=== PATIENT | male | born 1970 | race Caucasian/White ===

== ENCOUNTER 2017-03-16 19:13 | Emergency (ER) | payer BC, OTHER ==
[2017-03-16] MEDS ORDERED: traMADol 50 MG STARTER PACK 3 TAB BTL PO STA (19:25)
[2017-03-16] MEDS ORDERED: PENICILLIN VK 500MG STARTER 4 TAB BTL PO STA (19:25)
[2017-03-16 19:33] VITALS: BP 152/85; PULSE 107; RESP 18; TEMP 97.7
--- NOTE | 2017-03-16 19:34 | ED ---
General Adult HPI - General Stated complaint: DENTAL PAIN Time Seen by Provider: 03/16/17 19:18 Source: patient, RN notes reviewed Mode of arrival: ambulatory Limitations: no limitations - History of Present Illness Initial comments: 47-year-old male presents emergency department with a chief complaint of right- sided dental pain. Patient states it started over the last 2 days and slowly gotten worse. He denies any fever chills. He states he's been using his pain medication to help with the pain but the swelling has not gone down so he thought that he should be seen. There is been no nausea or vomiting. He states that he's noticed swelling under the eye into the sinus and he has pain to the right upper tooth. He was concerned due to his continued symptoms patient denies any other concerns at this time. No pain radiating to her neck. No difficulty opening or closing the mouth.Patient denies any recent fever, chills, shortness of breath, chest pain, back pain, abdominal pain, nausea vomiting, numbness or tingling, dysuria or hematuria, constipation or diarrhea, headaches or visual changes, or any other current symptoms. - Related Data Home Medications Medication Instructions Recorded Confirmed ARIPiprazole [Abilify] 30 mg PO DAILY 07/05/14 11/20/14 Atorvastatin [Lipitor] mg PO DAILY 07/05/14 11/20/14 Cyclobenzaprine [Flexeril] 5 mg PO HS 07/05/14 11/20/14 Venlafaxine HCl [Effexor] 225 mg PO DAILY 07/05/14 11/20/14 clonazePAM [KlonoPIN] 0.5 mg PO TID 07/05/14 11/20/14 HYDROcodone/APAP 10-325MG [[place] 1 each PO Q4HR PRN 11/20/14 11/20/14 10] Previous Rx's Medication Instructions Recorded Cyclobenzaprine [Flexeril] 10 mg PO TID #20 tablet 07/06/14 Acetaminophen with Codeine 1 each PO Q4H #20 tab 11/20/14 [Tylenol w/codeine #3] Albuterol Sulfate [Proair Hfa] 1 - 2 puff INHALATION Q6HR PRN #1 11/20/14 inhaler Penicillin V Potassium [Pen Vee K] 500 mg PO QID 7 Days tablet 03/16/17 traMADol HCl [Ultram] 50 mg PO Q6H PRN #20 tab 03/16/17 Allergies Allergy/AdvReac Type Severity Reaction Status Date / Time No Known Allergies Allergy Verified 03/16/17 19:29 Review of Systems ROS Statement: Those systems with pertinent positive or pertinent negative responses have been documented in the HPI. ROS Other: All systems not noted in ROS Statement are negative. Past Medical History Past Medical History: Diabetes Mellitus, Hyperlipidemia Additional Past Medical History / Comment(s): back pain, mood disorder History of Any Multi-Drug Resistant Organisms: None Reported Past Surgical History: Appendectomy, Back Surgery, Hernia Repair Past Psychological History: Depression Smoking Status: Current every day smoker Past Alcohol Use History: Occasional Past Drug Use History: None Reported General Exam Limitations: no limitations General appearance: alert, in no apparent distress Eye exam: Present: normal appearance, PERRL, EOMI. Absent: scleral icterus, conjunctival injection, periorbital swelling ENT exam: Present: normal exam, mucous membranes moist, other (Patient has poor dentition with a cavity noted to tooth #6. No obvious abscess or gingival margin noted.) Neck exam: Present: normal inspection. Absent: tenderness, meningismus, lymphadenopathy Respiratory exam: Present: normal lung sounds bilaterally. Absent: respiratory distress, wheezes, rales, rhonchi, stridor Cardiovascular Exam: Present: regular rate, normal rhythm, normal heart sounds. Absent: systolic murmur, diastolic murmur, rubs, gallop, clicks Neurological exam: Present: alert, oriented X3 Psychiatric exam: Present: normal affect, normal mood Skin exam: Present: warm, dry, intact, normal color. Absent: rash Course Vital Signs 03/16/17 19:29 Temperature 97.7 F Pulse Rate 107 H Respiratory 18 Rate Blood Pressure 152/85 O2 Sat by Pulse 96 Oximetry Medical Decision Making - Medical Decision Making 47-year-old male presents emergency department with dental pain. At this time we'll start patient antibiotics we will give him a small prescription for tramadol as well. We discussed follow-up with his doctor we discussed return parameters were discussed all the patient's questions. He stated the Jeramie management this plan. All questions have been answered. They will be discharged. Disposition Clinical Impression: Dental caries Disposition: HOME SELF-CARE Condition: Stable Instructions: Toothache (ED) Additional Instructions: Please use medication as discussed. Please follow up with family doctor if symptoms have not improved over the next two days. Please return to the emergency room if your symptoms increase or worsen or for any other concerns. [facility] [id number] [place] [address] [phone] (existing clients only) For new clients: [phone] 1st consult: $50 (includes Xrays) Usually 30% less then private dentist for visits after. [employer] Have to pay $50 for Xrays anmd rest is covered. [phone] Prescriptions: Penicillin V Potassium [Pen Vee K] 500 mg PO QID 7 Days tablet traMADol HCl [Ultram] 50 mg PO Q6H PRN #20 tab PRN Reason: Pain Referrals: Ghassan Salinas MD [Primary Care Provider] - 1-2 days Time of Disposition: 19:33
== END 2017-03-16 19:44 | disposition home or self-care (01) ==
LOC: EC 19:13
DX: K02.9 Dental caries, unspecified (principal); E78.5 Hyperlipidemia, unspecified; F32.9 Major depressive disorder, single episode, unspecified; F17.200 Nicotine dependence, unspecified, uncomplicated; Z79.899 Other long term (current) drug therapy
CPT/HCPCS: 99282

== ENCOUNTER 2017-08-28 04:56 | Inpatient (IN) | payer BC ==
[2017-08-28] MEDS ORDERED: SODIUM CHLORIDE 0.9% 1,000 ML IV STA (05:09)
[2017-08-28] MEDS ORDERED: DIAZEPAM 5 MG/ML 2 ML INJ IVP STA (05:09)
[2017-08-28] MEDS ORDERED: MORPHINE SULFATE 4 MG/ML SYRINGE IV STA (05:09)
[2017-08-28] MEDS ORDERED: MORPHINE SULFATE 2 MG/ML SYRINGE IV STA (05:09)
[2017-08-28] MEDS ORDERED: MORPHINE SULFATE 2 MG/ML SYRINGE IVP PRN (05:22)
[2017-08-28 05:35] LABS: Basophils # (A) 0.1 k/uL (0-0.2); Basophils % (A) 1 %; Eosinophils # (A) 0.3 k/uL (0-0.7); Eosinophils % (A) 3 %; HCT 46.1 % (39.0-53.0); HGB 15.4 gm/dL (13.0-17.5); Lymphocytes # (A) 2.1 k/uL (1.0-4.8); Lymphocytes % (A) 17 %; MCH 29.5 pg (25.0-35.0); MCHC 33.4 g/dL (31.0-37.0); MCV 88.4 fL (80.0-100.0); Mean Platelet Volume 7.2; Monocytes # (A) 0.8 k/uL (0-1.0); Monocytes % (A) 6 %; Neutrophils # (A) 8.6 k/uL (1.3-7.7); Neutrophils % (A) 72 %; Platelet Count 244 k/uL (150-450); RBC 5.21 m/uL (4.30-5.90); RDW 12.9 % (11.5-15.5)
--- NOTE | 2017-08-28 05:45 | ED ---
General Adult HPI - General Chief complaint: Chest Pain Stated complaint: Chest pain Time Seen by Provider: 08/28/17 05:07 Source: EMS, RN notes reviewed, old records reviewed Mode of arrival: EMS - History of Present Illness Initial comments: This is a 47-year-old male to the ER for evaluation. Please presenting for evaluation regards to cough congestion. Patient is no recent travel history no known sick contacts. Patient states he has history of high cholesterol diabetes. Patient's taking all medication as prescribed. Patient states he has some chest pain for a month. He is also complaining of some abdominal pain with nausea. Patient does have mild history of drinking alcohol. Denies any recent alcohol use. - Related Data Home Medications Medication Instructions Recorded Confirmed ARIPiprazole [Abilify] 30 mg PO DAILY 07/05/14 11/20/14 Atorvastatin [Lipitor] mg PO DAILY 07/05/14 11/20/14 Cyclobenzaprine [Flexeril] 5 mg PO HS 07/05/14 11/20/14 Venlafaxine HCl [Effexor] 225 mg PO DAILY 07/05/14 11/20/14 clonazePAM [KlonoPIN] 0.5 mg PO TID 07/05/14 11/20/14 HYDROcodone/APAP 10-325MG [[place] 1 each PO Q4HR PRN 11/20/14 11/20/14 10] Previous Rx's Medication Instructions Recorded Cyclobenzaprine [Flexeril] 10 mg PO TID #20 tablet 07/06/14 Acetaminophen with Codeine 1 each PO Q4H #20 tab 11/20/14 [Tylenol w/codeine #3] Albuterol Sulfate [Proair Hfa] 1 - 2 puff INHALATION Q6HR PRN #1 11/20/14 inhaler Penicillin V Potassium [Pen Vee K] 500 mg PO QID 7 Days tablet 03/16/17 traMADol HCl [Ultram] 50 mg PO Q6H PRN #20 tab 03/16/17 Allergies Allergy/AdvReac Type Severity Reaction Status Date / Time No Known Allergies Allergy Verified 08/28/17 05:06 Review of Systems ROS Statement: Those systems with pertinent positive or pertinent negative responses have been documented in the HPI. ROS Other: All systems not noted in ROS Statement are negative. Past Medical History Past Medical History: Hyperlipidemia Additional Past Medical History / Comment(s): back pain History of Any Multi-Drug Resistant Organisms: None Reported Past Surgical History: Appendectomy, Back Surgery, Hernia Repair Past Psychological History: No Psychological Hx Reported Smoking Status: Current every day smoker Past Alcohol Use History: Occasional Past Drug Use History: None Reported General Exam General appearance: alert, in no apparent distress Head exam: Present: atraumatic, normocephalic, normal inspection Eye exam: Present: normal appearance, PERRL, EOMI. Absent: scleral icterus, conjunctival injection, periorbital swelling ENT exam: Present: normal exam, mucous membranes dry Neck exam: Present: normal inspection. Absent: tenderness, meningismus, lymphadenopathy Respiratory exam: Present: normal lung sounds bilaterally. Absent: respiratory distress, wheezes, rales, rhonchi, stridor Cardiovascular Exam: Present: normal rhythm, tachycardia, normal heart sounds. Absent: systolic murmur, diastolic murmur, rubs, gallop, clicks GI/Abdominal exam: Present: soft, normal bowel sounds. Absent: distended, tenderness, guarding, rebound, rigid Extremities exam: Present: normal inspection, full ROM, normal capillary refill. Absent: tenderness, pedal edema, joint swelling, calf tenderness Back exam: Present: normal inspection Neurological exam: Present: alert, oriented X3, CN II-XII intact Psychiatric exam: Present: normal affect, normal mood Skin exam: Present: warm, dry, intact, normal color. Absent: rash Course Vital Signs 08/28/17 05:01 Temperature 98.8 F Pulse Rate 130 H Respiratory 22 Rate Blood Pressure 156/96 O2 Sat by Pulse 99 Oximetry - Reevaluation(s) Reevaluation #1: 08/28/17 06:18 Patient symptoms improving with pain control and anxiolysis Reevaluation #2: 08/28/17 06:18 Medical record is reviewed EKG Findings - EKG Comments: EKG Findings:: EKG shows sinus rhythm rate of 77, ID 108, QRS 76, QTc 434 Medical Decision Making - Medical Decision Making 47 male the ER for evaluation of chest pain of bowel pain, positive pancreatitis , will not for cardiac observation trending of troponin and nothing by mouth, pain control IV hydration - Lab Data Result diagrams: 08/28/17 05:25 08/28/17 05:25 Lab Results 08/28/17 08/28/17 08/28/17 Range/Units 05:25 05:25 05:25 WBC 12.0 H (3.8-10.6) k/uL RBC 5.21 (4.30-5.90) m/uL Hgb 15.4 (13.0-17.5) gm/dL Hct 46.1 (39.0-53.0) % MCV 88.4 (80.0-100.0) fL MCH 29.5 (25.0-35.0) pg MCHC 33.4 (31.0-37.0) g/dL RDW 12.9 (11.5-15.5) % Plt Count 244 (150-450) k/uL Neutrophils % 72 % Lymphocytes % 17 % Monocytes % 6 % Eosinophils % 3 % Basophils % 1 % Neutrophils # 8.6 H (1.3-7.7) k/uL Lymphocytes # 2.1 (1.0-4.8) k/uL Monocytes # 0.8 (0-1.0) k/uL Eosinophils # 0.3 (0-0.7) k/uL Basophils # 0.1 (0-0.2) k/uL PT (9.0-12.0) sec INR (<1.2) APTT (22.0-30.0) sec D-Dimer (<0.60) mg/L FEU Sodium 139 (137-145) mmol/L Potassium 4.0 (3.5-5.1) mmol/L Chloride 101 (98-107) mmol/L Carbon Dioxide 25 (22-30) mmol/L Anion Gap 13 mmol/L BUN 8 L (9-20) mg/dL Creatinine 0.80 (0.66-1.25) mg/dL Est GFR (CKD-EPI)AfAm >90 (>60 ml/min/1.73 sqM) Est GFR (CKD-EPI)NonAf >90 (>60 ml/min/1.73 sqM) Glucose 166 H (74-99) mg/dL Calcium 9.9 (8.4-10.2) mg/dL Magnesium 1.7 (1.6-2.3) mg/dL Total Bilirubin 0.3 (0.2-1.3) mg/dL AST 21 (17-59) U/L ALT 33 (21-72) U/L Alkaline Phosphatase 91 (38-126) U/L Total Creatine Kinase 133 (55-170) U/L CK-MB (CK-2) 1.0 (0.0-2.4) ng/mL CK-MB (CK-2) Rel Index 0.8 Troponin I <0.012 (0.000-0.034) ng/mL Total Protein 7.1 (6.3-8.2) g/dL Albumin 4.6 (3.5-5.0) g/dL Lipase 1439 H (23-300) U/L 08/28/ Range/Units 05:25 WBC (3.8-10.6) k/uL RBC (4.30-5.90) m/uL Hgb (13.0-17.5) gm/dL Hct (39.0-53.0) % MCV (80.0-100.0) fL MCH (25.0-35.0) pg MCHC (31.0-37.0) g/dL RDW (11.5-15.5) % Plt Count (150-450) k/uL Neutrophils % % Lymphocytes % % Monocytes % % Eosinophils % % Basophils % % Neutrophils # (1.3-7.7) k/uL Lymphocytes # (1.0-4.8) k/uL Monocytes # (0-1.0) k/uL Eosinophils # (0-0.7) k/uL Basophils # (0-0.2) k/uL PT 9.6 (9.0-12.0) sec INR 1.0 (<1.2) APTT 27.9 (22.0-30.0) sec D-Dimer 0.49 (<0.60) mg/L FEU Sodium (137-145) mmol/L Potassium (3.5-5.1) mmol/L Chloride (98-107) mmol/L Carbon Dioxide (22-30) mmol/L Anion Gap mmol/L BUN (9-20) mg/dL Creatinine (0.66-1.25) mg/dL Est GFR (CKD-EPI)AfAm (>60 ml/min/1.73 sqM) Est GFR (CKD-EPI)NonAf (>60 ml/min/1.73 sqM) Glucose (74-99) mg/dL Calcium (8.4-10.2) mg/dL Magnesium (1.6-2.3) mg/dL Total Bilirubin (0.2-1.3) mg/dL AST (17-59) U/L ALT (21-72) U/L Alkaline Phosphatase (38-126) U/L Total Creatine Kinase (55-170) U/L CK-MB (CK-2) (0.0-2.4) ng/mL CK-MB (CK-2) Rel Index Troponin I (0.000-0.034) ng/mL Total Protein (6.3-8.2) g/dL Albumin (3.5-5.0) g/dL Lipase (23-300) U/L - Radiology Data Radiology results: report reviewed (Chest x-rays negative), image reviewed Disposition Clinical Impression: Chest pain, Atypical chest pain, Acute pancreatitis Disposition: ADMITTED IP TO THIS [facility] Condition: Good Instructions: Chest Pain (ED) Is patient prescribed a controlled substance at d/c from ED?: No Referrals: Ghassan Salinas MD [Primary Care Provider] - 1-2 days
[2017-08-28 05:47] LABS: ALT 33 U/L (21-72); AST 21 U/L (17-59); Albumin 4.6 g/dL (3.5-5.0); Alkaline Phosphatase 91 U/L (38-126); Anion Gap 13 mmol/L; Blood Urea Nitrogen 8 mg/dL (9-20); Calcium 9.9 mg/dL (8.4-10.2); Carbon Dioxide 25 mmol/L (22-30); Chloride 101 mmol/L (98-107); D-Dimer 0.49 mg/L FEU (<0.60); Glucose 166 mg/dL (74-99); Lipase 1439 U/L (23-300); Magnesium 1.7 mg/dL (1.6-2.3); Partial Thromboplastin Time 27.9 sec (22.0-30.0); Prothrombin Time 9.6 sec (9.0-12.0); Sodium 139 mmol/L (137-145); Total Bilirubin 0.3 mg/dL (0.2-1.3); Total Protein 7.1 g/dL (6.3-8.2)
[2017-08-28 05:51] LABS: Creatine Kinase 133 U/L (55-170)
[2017-08-28 06:04] LABS: Troponin I <0.012 ng/mL (0.000-0.034)
[2017-08-28] MEDS ORDERED: THIAMINE 100 MG/ML 2 ML VIAL IM STA (06:15)
[2017-08-28] MEDS ORDERED: MORPHINE SULFATE 2 MG/ML SYRINGE IV PRN (06:15)
[2017-08-28] MEDS ORDERED: NITROGLYCERIN SL TABS 0.4 MG TAB SUBLINGUAL PRN (06:15)
[2017-08-28] MEDS ORDERED: SODIUM CHLORIDE 0.9% 1,000 ML IV SCH (06:15)
[2017-08-28] MEDS ORDERED: LORazepam 2 MG/ML INJ IV PRN ×3 (06:15)
[2017-08-28] MEDS ORDERED: ASPIRIN 81 MG PO STA (06:15)
--- NOTE | 2017-08-28 06:15 | XR ---
EXAMINATION TYPE: XR chest 2V DATE OF EXAM: 08/28/2017 COMPARISON: 11/20/2014 HISTORY: Chest pain TECHNIQUE: Frontal and lateral views of the chest are obtained. FINDINGS: Heart and mediastinum are normal. There is slight blunting of right costophrenic angle. Adelina ngs are clear of infiltrate. There are chest leads. Bony thorax is intact. IMPRESSION: There is new mild pleural reaction or fluid at the right lung base compared to old exam. Normal heart.
[2017-08-28] MEDS ORDERED: PANTOPRAZOLE 40 MG/10 ML VIAL IVP STA (06:17)
[2017-08-28] MEDS ORDERED: ONDANSETRON 4 MG/2 ML VIAL IVP STA (06:17)
[2017-08-28] MEDS ORDERED: ONDANSETRON 4 MG/2 ML VIAL IVP PRN (06:17)
[2017-08-28 07:16] VITALS: TEMP 97.8
[2017-08-28] MEDS ORDERED: PANTOPRAZOLE 40 MG/10 ML VIAL IVP SCH (09:00)
[2017-08-28] MEDS ORDERED: metFORMIN 500 MG TAB PO SCH (11:00)
[2017-08-28] MEDS ORDERED: VENLAFAXINE HCL ER 75 MG CAP PO SCH (11:00)
[2017-08-28 12:12] LABS: Cholesterol 104 mg/dL (<200); HDL Cholesterol 30 mg/dL (40-60); LDL Cholesterol,Calculated 37 mg/dL (0-99); Triglycerides 185 mg/dL (<150)
[2017-08-28 12:27] LABS: Creatine Kinase 150 U/L (55-170)
[2017-08-28 12:38] LABS: Creatine Kinase MB 0.7 ng/mL (0.0-2.4); Troponin I <0.012 ng/mL (0.000-0.034)
--- NOTE | 2017-08-28 12:47 | US ---
EXAMINATION TYPE: US abdomen limited DATE OF EXAM: 08/28/2017 COMPARISON: None CLINICAL HISTORY: abdominal pain, elevated lipase. RUQ pain, NPO EXAM MEASUREMENTS: Liver Length: 15.7 cm Gallbladder Wall: 0.2 cm CBD: 0.3 cm CHD: 0.3 cm Right Kidney: 11.4 x 5.0 cm Pancreas: Appears heterogenous and slightly echogenic. Liver: wnl Gallbladder: wnl Evidence for sonographic Watt's sign: neg CBD: wnl CHD: wnl Right Kidney: Medial anechoic lesion seen at hilum - 2.2 x 2.2 cm. Medial lower pole cystic lesion = 0.4 x 0.5 x 0.3 cm IMPRESSION: 1. Right renal cyst. 2. Possible peripelvic cyst right kidney
--- NOTE | 2017-08-28 13:17 | ECHOF ---
Referral Reason: MEASUREMENTS -------- HEIGHT: 165.1 cm WEIGHT: 72.1 kg BP: 131/88 IVSd: 1.0 cm (0.6 - 1.1) LVIDd: 4.2 cm (3.9 - 5.3) LVPWd: 1.1 cm (0.6 - 1.1) IVSs: 1.2 cm LVIDs: 3.4 cm LVPWs: 1.2 cm LA Diam: 3.4 cm (2.7 - 3.8) LAESV Index (A-L): 19.14 ml/m Ao Diam: 3.3 cm (2.0 - 3.7) AV Cusp: 1.5 cm (1.5 - 2.6) LA Diam: 3.2 cm (2.7 - 3.8) MV EXCURSION: 14.881 mm (> 18.000) MV EF SLOPE: 96 mm/s (70 - 150) EPSS: 2.2 cm MV E Gera: 0.85 m/s MV DecT: 153 ms MV A Gera: 0.85 m/s MV E/A Ratio: 1.00 RAP: 5.00 mmHg RVSP: 22.70 mmHg FINDINGS -------- Sinus rhythm. This was a technically good study. LV size, wall thickness and systolic function are normal, with an EF greater than 55%. The left robert tricular size is normal. The right ventricle is normal in size. The left atrial size is normal. The right atrial size is normal. The aortic valve is trileaflet, and appears structurally normal. No aortic stenosis or regurgitation. Mild mitral regurgitation is present. Mild tricuspid regurgitation present. There is no evidence of pulmonary hypertension. The right v entricular systolic pressure, as measured by Doppler, is 22.70mmHg. There is no pulmonic regurgitation present. The aortic root size is normal. There is no pericardial effusion. CONCLUSIONS -------- 1. LV size, wall thickness and systolic function are normal, with an EF greater than 55%. 2. The left ventricular size is normal. 3. The right ventricle is normal in size. 4. The left atrial size is normal. 5. The right atrial size is normal. 6. The aortic valve is trileaflet, and appears structurally normal. No aortic stenosis or regurgitati on. 7. Mild mitral regurgitation is present. 8. Mild tricuspid regurgitation present. 9. There is no evidence of pulmonary hypertension. 10. The right ventricular systolic pressure, as measured by Doppler, is 22.70mmHg. 11. There is no pulmonic regurgitation present. 12. The aortic root size is normal. 13. There is no pericardial effusion. CARTON CATCHER: Audrey Holland RDCS
--- NOTE | 2017-08-28 13:52 | P.HPIM ---
History of Present Illness H&P Date: 08/28/17 Chief Complaint: chest pain 47-year-old male who presented to the emergency room with a chief complaint of chest pain. The patient states he has been having chest pain intermittently for one month. He describes it as a "charley horse" in the middle of his chest. The patient states the pain improves when he is stretching. The pain is worse with deep inspiration. He reports pain upon palpation of chest wall. He denies shortness of breath. He reports smoking 3 packs of cigarettes a day and drinking 15 cups of coffee. He also reports he was started on Lipitor about a year ago by Dr. Salinas because his triglycerides were around 5,000. He reports his repeat triglycerides completed at his primary care physicians office was around 1000. The patient also complains of occasional right-sided abdominal pain for the last 2 weeks. Patient states he still has his gallbladder. He reports history of appendectomy. Patient states he drinks alcohol once a month. Patient reports daily marijuana use. The patients blood pressure has been elevated, however the patient has been agitated all day regarding his wait time in the emergency room. Will continue to trend BP. The patient has a history of chronic back pain and takes [place] daily. He also has a history of hyperlipidemia. The patient states he has also a type II diabetic. He takes metformin daily, but states he does not check his blood sugars at home. Chest x-ray: New mild pleural reaction or fluid at the right lung base compared to old exam. Laboratory data: WBC 12.0. Hemoglobin 15.4. Platelet count 244. Sodium 139. Potassium 4.0. BUN 8. Creatinine 0.80. Glucose 166. LFTs within normal limits. Amylase 110. Lipase 1439. Troponins negative 2 D-Dimer: 0.49 The patient was admitted to the hospital under the care of Dr. Acosta. Review of Systems Those systems with pertinent positive or pertinent negative responses have been documented in the HPI Past Medical History Past Medical History: Hyperlipidemia Additional Past Medical History / Comment(s): back pain History of Any Multi-Drug Resistant Organisms: None Reported Past Surgical History: Appendectomy, Back Surgery, Hernia Repair Past Psychological History: No Psychological Hx Reported Smoking Status: Current every day smoker Past Alcohol Use History: Occasional Past Drug Use History: None Reported - Past Family History Father Family Medical History: Cancer Additional Family Medical History / Comment(s): Bladder cancer Mother Additional Family Medical History / Comment(s): Mother has anxiety and depression. Medications and Allergies Home Medications Medication Instructions Recorded Confirmed Type HYDROcodone/APAP 10-325MG [[place] 1 tab PO Q4HR PRN 11/20/14 08/28/17 History 10] Amino Acid Recovery Powder 1 scoop PO DAILY 08/28/17 08/28/17 History Atorvastatin [Lipitor] 80 mg PO HS 08/28/17 08/28/17 History QUEtiapine FUMARATE [SEROquel] 200 mg PO HS 08/28/17 08/28/17 History Venlafaxine HCl [Effexor XR] 225 mg PO DAILY 08/28/17 08/28/17 History metFORMIN HCL 1,000 mg PO BID 08/28/17 08/28/17 History Allergies Allergy/AdvReac Type Severity Reaction Status Date / Time nickel Allergy Rash/Hives Verified 08/28/17 07:59 Physical Exam Vitals: Vital Signs Temp Pulse Resp BP Pulse Ox 08/28/17 12:00 76 20 155/89 99 08/28/17 10:43 75 20 179/100 99 08/28/17 07:14 97.8 F 72 18 151/93 99 08/28/17 06:42 79 18 131/88 98 08/28/17 05:01 98.8 F 130 H 22 156/96 99 Intake and Output 08/27/17 08/28/17 08/28/17 22:59 06:59 14:59 Output Total 500 Balance -500 Output: Urine 500 Other: Weight 71.214 kg GENERAL: This is a 47-year-old male in no apparent distress at the time of examination. Pleasant and cooperative. HEENT: Head is atraumatic, normocephalic. Pupils are equal, round, and reactive to light. Sclerae anicteric. Conjunctivae are clear. Mucus membranes of the mouth are moist. Neck is supple. RESPIRATORY: Clear to ausculation. No wheezes, rales, or rhonchi. No use of accessory muscles. Patient maintaining oxygen saturation greater than 92%. Chest wall tenderness is noted on palpation or with deep breathing. CARDIOVASCULAR: Regular rate and rhythm. S1 and S2 noted. No systolic or diastolic murmur auscultated. No JVD noted. No S3 or S4 noted. GASTROINTESTINAL: No distention noted. Abdomen soft and round. Normal active bowel sounds auscultated x 4 quadrants. Pain and tenderness noted upon palpation of epigastric region. INTEGUMENTARY: No cyanosis. No jaundice. No rashes noted. No cellulitis noted. EXTREMITIES: 2+ peripheral pulses. No evidence of peripheral edema. No calf tenderness noted. NEUROLOGIC: Cranial nerves II-XII intact. PSYCHIATRIC: Awake, alert, and oriented X 3. Appropriate affect. Intact judgement and insight. Results CBC & Chem 7: 08/28/17 05:25 08/28/17 05:25 Labs: Abnormal Lab Results - Last 24 Hours (Table) 08/28/17 08/28/17 08/28/17 Range/Units 05:25 05:25 11:52 WBC 12.0 H (3.8-10.6) k/uL Neutrophils # 8.6 H (1.3-7.7) k/uL BUN 8 L (9-20) mg/dL Glucose 166 H (74-99) mg/dL Triglycerides 185 H (<150) mg/dL HDL Cholesterol 30 L (40-60) mg/dL Lipase 1439 H (23-300) U/L Assessment and Plan Plan: ASSESSMENT: Chest pain, troponin negative x 2, Atypical for acute coronary syndrome Abdominal pain with elevated lipase, suspect pancreatitis Diabetes mellitus, type II Hyperlipidemia Chronic back pain Daily marijuana use Nicotine dependence, patient is a current cigarette smoker and reports smoking 3 packs per day PLAN: Chest pain appears atypical for acute coronary syndrome but due to patients heavy tobacco use, hyperlipidemia, and diabetes mellitus will consult cardiology for further evaluation Await results of echo Consult GI to evaluate abdominal pain and elevated lipase Obtain US of abdomen to assess gallbladder and pancreas NPO except ice chips Home meds as appropriate Monitor labs GI prophylaxis: Protonix 40 mg IV Daily DVT prophylaxis: Heparin 5000 units subcu every 8 hours Monitor vital signs and address as appropriate Discharge planning: Patient to return home when stable Further recommendations pending patient's course Nurse practitioner note has been reviewed by physician. Signing provider agrees with the documented findings, assessment, and plan of care.
[2017-08-28] MEDS ORDERED: HYDROcodone/APAP 10-325MG 1 EACH TAB PO PRN (15:08)
[2017-08-28 15:38] VITALS: BP 146/93; PULSE 92; RESP 16
[2017-08-28] MEDS ORDERED: HEPARIN SODIUM,PORCINE 5,000 UNIT/ML 1 ML VIAL SQ SCH (16:00)
[2017-08-28] MEDS ORDERED: THIAMINE 100 MG TAB PO SCH (17:00)
[2017-08-28] MEDS ORDERED: ATORVASTATIN 80 MG TAB PO SCH (21:00)
[2017-08-28] MEDS ORDERED: QUEtiapine 200 MG TAB PO SCH (21:00)
[2017-08-29] MEDS ORDERED: ASPIRIN 325 MG TAB PO SCH (09:00)
== END 2017-08-28 15:48 | disposition left against medical advice (07) | DRG 313 ==
LOC: EC 04:56 → 6SEL 06:17
PROVIDERS: ADMIT Family Medicine; ATTEND Family Medicine
DX: R07.89 Other chest pain (principal); K85.90 Acute pancreatitis without necrosis or infection, unspecified; E11.9 Type 2 diabetes mellitus without complications; E78.5 Hyperlipidemia, unspecified; F17.210 Nicotine dependence, cigarettes, uncomplicated; G89.29 Other chronic pain; M54.9 Dorsalgia, unspecified; Z79.84 Long term (current) use of oral hypoglycemic drugs; Z79.899 Other long term (current) drug therapy; Z90.49 Acquired absence of other specified parts of digestive tract; Z91.048 Other nonmedicinal substance allergy status; Z79.891 Long term (current) use of opiate analgesic; Z80.52 Family history of malignant neoplasm of bladder; Z81.8 Family history of other mental and behavioral disorders
CPT/HCPCS: 36415; 71046; 76705; 80053; 80061; 82150; 82550; 82553; 83690; 83735; 84484; 85025; 85379; 85610; 85730; 93005; 93306; 96361; 96372; 96374; 96375; 96376; 99285

== ENCOUNTER 2018-01-25 13:17 | Emergency (ER) | payer SELFPAY ==
[2018-01-25] MEDS ORDERED: SODIUM CHLORIDE 0.9% 1,000 ML IV STA (13:43)
[2018-01-25] MEDS ORDERED: LORazepam 2 MG/ML INJ IV STA (13:43)
--- NOTE | 2018-01-25 13:44 | ED ---
Altered Mental Status HPI - General Chief Complaint: Altered Mental Status Stated Complaint: altered Time Seen by Provider: 01/25/18 13:42 Source: patient, RN notes reviewed, old records reviewed Mode of arrival: wheelchair Limitations: no limitations - History of Present Illness Initial Comments: This is a 47-year-old male the ER for evaluation of altered mental status. Patient is continues to say something is in the right something is wrong is a feel like he doesn't feel normal, he thinks that there is he's been drawn breathing something was wrong with him he feels like he can't stop talking he feels like his voice is wrong MD Complaint: altered mental status, weakness -: minutes(s) Severity: moderate Consistency of Symptoms: waxing and waning, constant Associated Symptoms: denies other symptoms - Related Data Home Medications Medication Instructions Recorded Confirmed HYDROcodone/APAP 10-325MG [[place] 1 tab PO Q8H PRN 11/20/14 01/25/18 10] Venlafaxine HCl [Effexor XR] 225 mg PO DAILY 08/28/17 01/25/18 metFORMIN HCL 1,000 mg PO BID 08/28/17 01/25/18 OXcarbazepine [Trileptal] 300 mg PO BID 01/25/18 01/25/18 QUEtiapine [SEROquel] 100 mg PO HS 01/25/18 01/25/18 traZODone HCL [Desyrel] 100 mg PO HS 01/25/18 01/25/18 Allergies Allergy/AdvReac Type Severity Reaction Status Date / Time nickel Allergy Rash/Hives Verified 01/25/18 13:23 Review of Systems ROS Statement: Those systems with pertinent positive or pertinent negative responses have been documented in the HPI. ROS Other: All systems not noted in ROS Statement are negative. Past Medical History Past Medical History: Hyperlipidemia Additional Past Medical History / Comment(s): back pain History of Any Multi-Drug Resistant Organisms: None Reported Past Surgical History: Appendectomy, Back Surgery, Hernia Repair Additional Past Surgical History / Comment(s): Cervical fusion with plate, L inguinal hernia repair. Past Anesthesia/Blood Transfusion Reactions: No Reported Reaction Past Psychological History: No Psychological Hx Reported Smoking Status: Current every day smoker Past Alcohol Use History: Occasional Past Drug Use History: None Reported - Past Family History Father Family Medical History: Cancer Additional Family Medical History / Comment(s): Bladder cancer Mother Additional Family Medical History / Comment(s): Mother has anxiety and depression. General Exam Limitations: altered mental status General appearance: alert, in no apparent distress Head exam: Present: atraumatic, normocephalic, normal inspection Eye exam: Present: normal appearance, PERRL, EOMI. Absent: scleral icterus, conjunctival injection, periorbital swelling ENT exam: Present: normal exam, mucous membranes moist Neck exam: Present: normal inspection. Absent: tenderness, meningismus, lymphadenopathy Respiratory exam: Present: normal lung sounds bilaterally. Absent: respiratory distress, wheezes, rales, rhonchi, stridor Cardiovascular Exam: Present: regular rate, normal rhythm, normal heart sounds. Absent: systolic murmur, diastolic murmur, rubs, gallop, clicks GI/Abdominal exam: Present: soft, normal bowel sounds. Absent: distended, tenderness, guarding, rebound, rigid Extremities exam: Present: normal inspection, full ROM, normal capillary refill. Absent: tenderness, pedal edema, joint swelling, calf tenderness Back exam: Present: normal inspection Neurological exam: Present: alert, oriented X3, CN II-XII intact Psychiatric exam: Present: normal affect, normal mood Skin exam: Present: warm, dry, intact, normal color. Absent: rash Course Vital Signs 01/25/18 01/25/18 01/25/18 13:21 13:29 13:30 Temperature 98.4 F Pulse Rate 128 H 96 99 Respiratory 24 20 Rate Blood Pressure 149/110 140/102 140/102 O2 Sat by Pulse 100 99 100 Oximetry 01/25/18 14:00 Temperature Pulse Rate 102 H Respiratory 20 Rate Blood Pressure 137/101 O2 Sat by Pulse 97 Oximetry - Reevaluation(s) Reevaluation #1: 01/25/18 16:05 Medical record is reviewed Reevaluation #2: 01/25/18 16:05 Patient symptoms much improved with Ativan Medical Decision Making - Medical Decision Making 47 male the ER for evaluation, patient resents today for evaluation regarding altered mental status, patient stated this time he feels better and will be discharged - Lab Data Result diagrams: 01/25/18 13:39 01/25/18 13:39 Lab Results 11/22/18 11/22/18 11/22/18 Range/Units 13:39 13:39 13:39 WBC 12.0 H (3.8-10.6) k/uL RBC 5.24 (4.30-5.90) m/uL Hgb 15.8 (13.0-17.5) gm/dL Hct 46.3 (39.0-53.0) % MCV 88.4 (80.0-100.0) fL MCH 30.1 (25.0-35.0) pg MCHC 34.1 (31.0-37.0) g/dL RDW 12.7 (11.5-15.5) % Plt Count 315 (150-450) k/uL Neutrophils % 83 % Lymphocytes % 10 % Monocytes % 5 % Eosinophils % 1 % Basophils % 1 % Neutrophils # 9.9 H (1.3-7.7) k/uL Lymphocytes # 1.1 (1.0-4.8) k/uL Monocytes # 0.6 (0-1.0) k/uL Eosinophils # 0.1 (0-0.7) k/uL Basophils # 0.1 (0-0.2) k/uL PT (9.0-12.0) sec INR (<1.2) Sodium 139 (137-145) mmol/L Potassium 4.3 (3.5-5.1) mmol/L Chloride 102 (98-107) mmol/L Carbon Dioxide 22 (22-30) mmol/L Anion Gap 15 mmol/L BUN 4 L (9-20) mg/dL Creatinine 0.73 (0.66-1.25) mg/dL Est GFR (CKD-EPI)AfAm >90 (>60 ml/min/1.73 sqM) Est GFR (CKD-EPI)NonAf >90 (>60 ml/min/1.73 sqM) Glucose 196 H (74-99) mg/dL POC Glucose (mg/dL) (75-99) mg/dL POC Glu Library Information Technician ID Calcium 10.4 H (8.4-10.2) mg/dL Total Bilirubin 0.4 (0.2-1.3) mg/dL AST 22 (17-59) U/L ALT 26 (21-72) U/L Alkaline Phosphatase 87 (38-126) U/L Total Creatine Kinase 106 (55-170) U/L CK-MB (CK-2) 2.2 (0.0-2.4) ng/mL CK-MB (CK-2) Rel Index 2.1 Troponin I <0.012 (0.000-0.034) ng/mL Total Protein 8.1 (6.3-8.2) g/dL Albumin 4.8 (3.5-5.0) g/dL Lipase 378 H (23-300) U/L Salicylates <1.0 mg/dL Urine Opiates Screen (NotDetected) Ur Oxycodone Screen (NotDetected) Urine Methadone Screen (NotDetected) Ur Propoxyphene Screen (NotDetected) Acetaminophen <10.0 ug/mL Ur Barbiturates Screen (NotDetected) U Tricyclic Antidepress (NotDetected) Ur Phencyclidine Scrn (NotDetected) Ur Amphetamines Screen (NotDetected) U Methamphetamines Scrn (NotDetected) U Benzodiazepines Scrn (NotDetected) Urine Cocaine Screen (NotDetected) U Marijuana (THC) Screen (NotDetected) Serum Alcohol <10 mg/dL 01/25/18 01/25/18 01/25/18 Range/Units 13:39 13:41 14:48 WBC (3.8-10.6) k/uL RBC (4.30-5.90) m/uL Hgb (13.0-17.5) gm/dL Hct (39.0-53.0) % MCV (80.0-100.0) fL MCH (25.0-35.0) pg MCHC (31.0-37.0) g/dL RDW (11.5-15.5) % Plt Count (150-450) k/uL Neutrophils % % Lymphocytes % % Monocytes % % Eosinophils % % Basophils % % Neutrophils # (1.3-7.7) k/uL Lymphocytes # (1.0-4.8) k/uL Monocytes # (0-1.0) k/uL Eosinophils # (0-0.7) k/uL Basophils # (0-0.2) k/uL PT 10.0 (9.0-12.0) sec INR 1.0 (<1.2) Sodium (137-145) mmol/L Potassium (3.5-5.1) mmol/L Chloride (98-107) mmol/L Carbon Dioxide (22-30) mmol/L Anion Gap mmol/L BUN (9-20) mg/dL Creatinine (0.66-1.25) mg/dL Est GFR (CKD-EPI)AfAm (>60 ml/min/1.73 sqM) Est GFR (CKD-EPI)NonAf (>60 ml/min/1.73 sqM) Glucose (74-99) mg/dL POC Glucose (mg/dL) 180 H (75-99) mg/dL POC Glu Library Information Technician ID Calcium (8.4-10.2) mg/dL Total Bilirubin (0.2-1.3) mg/dL AST (17-59) U/L ALT (21-72) U/L Alkaline Phosphatase (38-126) U/L Total Creatine Kinase (55-170) U/L CK-MB (CK-2) (0.0-2.4) ng/mL CK-MB (CK-2) Rel Index Troponin I (0.000-0.034) ng/mL Total Protein (6.3-8.2) g/dL Albumin (3.5-5.0) g/dL Lipase (23-300) U/L Salicylates mg/dL Urine Opiates Screen Not Detected (NotDetected) Ur Oxycodone Screen Not Detected (NotDetected) Urine Methadone Screen Not Detected (NotDetected) Ur Propoxyphene Screen Not Detected (NotDetected) Acetaminophen ug/mL Ur Barbiturates Screen Not Detected (NotDetected) U Tricyclic Antidepress Not Detected (NotDetected) Ur Phencyclidine Scrn Not Detected (NotDetected) Ur Amphetamines Screen Not Detected (NotDetected) U Methamphetamines Scrn Not Detected (NotDetected) U Benzodiazepines Scrn Not Detected (NotDetected) Urine Cocaine Screen Not Detected (NotDetected) U Marijuana (THC) Screen Not Detected (NotDetected) Serum Alcohol mg/dL - EKG Data -: EKG Interpreted by Me (EKG shows sinus tach rate of 104, CT 1.4, QRS 74, QTc 428) Disposition Clinical Impression: Altered mental status Disposition: HOME SELF-CARE Condition: Good Instructions: Altered Mental Status (ED) Is patient prescribed a controlled substance at d/c from ED?: No Referrals: Ghassan Salinas MD [Primary Care Provider] - 1-2 days
[2018-01-25 13:57] LABS: Basophils # (A) 0.1 k/uL (0-0.2); Basophils % (A) 1 %; Eosinophils # (A) 0.1 k/uL (0-0.7); Eosinophils % (A) 1 %; HCT 46.3 % (39.0-53.0); HGB 15.8 gm/dL (13.0-17.5); Lymphocytes # (A) 1.1 k/uL (1.0-4.8); Lymphocytes % (A) 10 %; MCH 30.1 pg (25.0-35.0); MCHC 34.1 g/dL (31.0-37.0); MCV 88.4 fL (80.0-100.0); Mean Platelet Volume 6.5; Monocytes # (A) 0.6 k/uL (0-1.0); Monocytes % (A) 5 %; Neutrophils # (A) 9.9 k/uL (1.3-7.7); Neutrophils % (A) 83 %; Platelet Count 315 k/uL (150-450); RBC 5.24 m/uL (4.30-5.90); RDW 12.7 % (11.5-15.5)
[2018-01-25 14:01] LABS: Glucose,Whole Blood 180 mg/dL (75-99)
[2018-01-25 14:07] LABS: ALT 26 U/L (21-72); AST 22 U/L (17-59); Acetaminophen <10.0 ug/mL; Albumin 4.8 g/dL (3.5-5.0); Alcohol <10 mg/dL; Alkaline Phosphatase 87 U/L (38-126); Anion Gap 15 mmol/L; Blood Urea Nitrogen 4 mg/dL (9-20); Calcium 10.4 mg/dL (8.4-10.2); Carbon Dioxide 22 mmol/L (22-30); Chloride 102 mmol/L (98-107); Glucose 196 mg/dL (74-99); Lipase 378 U/L (23-300); Potassium 4.3 mmol/L (3.5-5.1); Salicylate <1.0 mg/dL; Sodium 139 mmol/L (137-145); Total Bilirubin 0.4 mg/dL (0.2-1.3); Total Protein 8.1 g/dL (6.3-8.2)
[2018-01-25 14:17] LABS: Creatine Kinase 106 U/L (55-170)
[2018-01-25 14:30] LABS: Creatine Kinase MB 2.2 ng/mL (0.0-2.4); Troponin I <0.012 ng/mL (0.000-0.034)
[2018-01-25 15:08] LABS: Amphetamine Screen,Urine Not Detected (NotDetected); Barbiturate Screen,Urine Not Detected (NotDetected); Benzodiazepines Screen,Urine Not Detected (NotDetected); Cocaine Screen,Urine Not Detected (NotDetected); Methadone Screen, Urine Not Detected (NotDetected); Opiate Screen,Urine Not Detected (NotDetected); Oxycodone Screen, Urine Not Detected (NotDetected); Phencyclidine Screen,Urine Not Detected (NotDetected); Tricyclic Antidepressant,Urine Not Detected (NotDetected); Urn Cannabinoid Scrn Not Detected (NotDetected)
[2018-01-25 16:23] VITALS: BP 134/71; PULSE 91; RESP 16; TEMP 97.8
== END 2018-01-25 16:22 | disposition home or self-care (01) ==
LOC: EC 13:17
DX: R41.82 Altered mental status, unspecified (principal); R53.1 Weakness; F17.200 Nicotine dependence, unspecified, uncomplicated; Z91.048 Other nonmedicinal substance allergy status; Z79.84 Long term (current) use of oral hypoglycemic drugs; Z79.899 Other long term (current) drug therapy; Z87.39 Personal history of other diseases of the musculoskeletal system and connective tissue; Z98.1 Arthrodesis status
CPT/HCPCS: 36415; 93005; 80053; 82550; 82553; 83690; 84484; 85025; 85610; 80306; 83520 ×2; 80320; 99285; 96374; 96361 ×3; J2060

== ENCOUNTER 2018-02-15 14:52 | Emergency (ER) | payer OTHER ==
--- NOTE | 2018-02-15 15:28 | ED ---
General Adult HPI - General Chief complaint: Psychiatric Symptoms Stated complaint: MENTAL HEALTH Time Seen by Provider: 02/15/18 15:05 Source: patient, family, RN notes reviewed Mode of arrival: wheelchair Limitations: no limitations - History of Present Illness Initial comments: This is a 47-year-old male who presents emergency Department with a past medical history significant for bipolar. Mother brings him in today because he is babbling and not making sense. Mom states he is stating he wants to hurt other people but he tells me that he wants to hurt other people with his mind. Patient states he's very intelligent and he can mess with pupils mind and asked where he wants to do because his younger generation is lost. Patient doesn't want any females in the room because he fears that they're with disrespect. Patient states she does not want harm himself or anybody else physically but he does want to mess with her mind. Patient is speaking very rapidly and changing subjects just as rapidly. Mother states that a couple days ago he was acting normally in this all started this morning and has progressed since early this morning. Patient denies any physical complaints today. Patient denies chest pain shortness of breath or difficulty breathing. Patient denies any recent fever chills or cough. Patient denies abdominal pain patient denies nausea vomiting diarrhea. Patient denies any recent injury or trauma. Patient denies any alcohol or drug use. Patient states he does smoke cigarettes. Patient states she only has one pill a day to take however his mother states he has had at least 3 - Related Data Home Medications Medication Instructions Recorded Confirmed Venlafaxine HCl [Effexor XR] 225 mg PO DAILY 08/28/17 02/15/18 metFORMIN HCL 1,000 mg PO BID 08/28/17 02/15/18 OXcarbazepine [Trileptal] 300 mg PO BID 01/25/18 02/15/18 QUEtiapine [SEROquel] 100 mg PO HS 01/25/18 02/15/18 traZODone HCL [Desyrel] 100 mg PO HS 01/25/18 02/15/18 Atorvastatin [Lipitor] 80 mg PO DAILY 02/15/18 02/15/18 Allergies Allergy/AdvReac Type Severity Reaction Status Date / Time nickel Allergy Rash/Hives Verified 02/15/18 16:34 Review of Systems ROS Statement: Those systems with pertinent positive or pertinent negative responses have been documented in the HPI. ROS Other: All systems not noted in ROS Statement are negative. Past Medical History Past Medical History: Hyperlipidemia Additional Past Medical History / Comment(s): back pain History of Any Multi-Drug Resistant Organisms: None Reported Past Surgical History: Appendectomy, Back Surgery, Hernia Repair Additional Past Surgical History / Comment(s): Cervical fusion with plate, L inguinal hernia repair. Past Anesthesia/Blood Transfusion Reactions: No Reported Reaction Past Psychological History: No Psychological Hx Reported Smoking Status: Current every day smoker Past Alcohol Use History: Occasional Past Drug Use History: None Reported - Past Family History Father Family Medical History: Cancer Additional Family Medical History / Comment(s): Bladder cancer Mother Additional Family Medical History / Comment(s): Mother has anxiety and depression. General Exam - General Exam Comments Initial Comments: GENERAL: Patient is well-developed and well-nourished. Patient is nontoxic and well- hydrated and is in no acute distress. Patient however is very agitated and accusatory. Patient is very concerned about being disrespected. ENT: Neck is soft and supple. No significant lymphadenopathy is noted. Neck has full range of motion without eliciting any pain. EYES: The sclera were anicteric and conjunctiva were pink and moist. Extraocular movements were intact and pupils were equal round and reactive to light. Eyelids were unremarkable. PULMONARY: Unlabored respirations. Good breath sounds bilaterally. No audible rales rhonchi or wheezing was noted. CARDIOVASCULAR: There is a regular rate and rhythm without any murmurs gallops or rubs. ABDOMEN: Soft and nontender with normal bowel sounds. SKIN: Skin is clear with no lesions or rashes and otherwise unremarkable. NEUROLOGIC: Patient is alert and oriented x3. Cranial nerves II through XII are grossly intact. Motor and sensory are also intact. Normal speech, volume and content. Symmetrical smile. MUSCULOSKELETAL: Normal extremities with adequate strength and full range of motion. No lower extremity swelling or edema. No calf tenderness. LYMPHATICS: No significant lymphadenopathy is noted PSYCHIATRIC: Patient is loud agitated and accusatory. Patient also states she wants to hurt people with this mind. Patient is babbling nonstop and not making any sense and very tangential in his thinking. Limitations: no limitations Course Vital Signs 02/15/18 15:06 Pulse Rate 92 Respiratory 18 Rate Blood Pressure 162/102 Disposition Clinical Impression: Acute psychosis Disposition: TRANSFER TO PSYCH HOSP/UNIT Referrals: Ghassan Salinas MD [Primary Care Provider] - 1-2 days Time of Disposition: 17:26
[2018-02-15 17:59] LABS: Appearance,Urine Clear (Clear); Bilirubin,Urine Negative (Negative); Blood,Urine Negative (Negative); Color,Urine Yellow; Glucose,Urine (UA) Trace (Negative); Ketones,Urine Negative (Negative); Leukocyte Esterase,Urine Negative (Negative); Nitrite,Urine Negative (Negative); Protein,Urine Negative (Negative); Specific Gravity,Urine 1.015 (1.001-1.035); Urobilinogen,Urine <2.0 mg/dL (<2.0)
[2018-02-15 18:01] LABS: Basophils # (A) 0.1 k/uL (0-0.2); Basophils % (A) 1 %; Eosinophils # (A) 0.2 k/uL (0-0.7); Eosinophils % (A) 2 %; HCT 49.5 % (39.0-53.0); HGB 16.6 gm/dL (13.0-17.5); Lymphocytes # (A) 1.6 k/uL (1.0-4.8); Lymphocytes % (A) 15 %; MCH 30.1 pg (25.0-35.0); MCHC 33.6 g/dL (31.0-37.0); MCV 89.5 fL (80.0-100.0); Mean Platelet Volume 6.6; Monocytes # (A) 0.5 k/uL (0-1.0); Monocytes % (A) 4 %; Neutrophils # (A) 8.2 k/uL (1.3-7.7); Neutrophils % (A) 77 %; Platelet Count 302 k/uL (150-450); RBC 5.53 m/uL (4.30-5.90); RDW 12.6 % (11.5-15.5); WBC 10.7 k/uL (3.8-10.6)
[2018-02-15 18:08] LABS: Amphetamine Screen,Urine Not Detected (NotDetected); Barbiturate Screen,Urine Not Detected (NotDetected); Benzodiazepines Screen,Urine Not Detected (NotDetected); Cocaine Screen,Urine Not Detected (NotDetected); Methadone Screen, Urine Not Detected (NotDetected); Opiate Screen,Urine Not Detected (NotDetected); Oxycodone Screen, Urine Not Detected (NotDetected); Phencyclidine Screen,Urine Not Detected (NotDetected); Tricyclic Antidepressant,Urine Detected (NotDetected); Urn Cannabinoid Scrn Detected (NotDetected)
[2018-02-15 19:54] VITALS: BP 138/78; PULSE 100; RESP 16
[2018-02-15] MEDS ORDERED: LORazepam 2 MG/ML INJ IM STA (19:54)
== END 2018-02-16 04:28 ==
LOC: EC 14:52
DX: F23 Brief psychotic disorder (principal); E78.5 Hyperlipidemia, unspecified; F17.210 Nicotine dependence, cigarettes, uncomplicated; Z81.8 Family history of other mental and behavioral disorders; Z79.84 Long term (current) use of oral hypoglycemic drugs; Z79.899 Other long term (current) drug therapy; Z91.048 Other nonmedicinal substance allergy status
CPT/HCPCS: 36415; 85025; 81003; 80306; 99285; 96372; J2060

== ENCOUNTER 2018-02-27 08:50 | Emergency (ER) | payer OTHER ==
[2018-02-27] MEDS ORDERED: LORazepam 1 MG TAB PO STA (09:30)
[2018-02-27] MEDS ORDERED: ACETAMINOPHEN TAB 500 MG TAB PO STA (09:30)
--- NOTE | 2018-02-27 09:32 | ED ---
Anxiety HPI - General Chief Complaint: Anxiety Stated Complaint: Legs wobbly Time Seen by Provider: 02/27/18 09:01 Source: patient Mode of arrival: ambulatory - History of Present Illness Initial Comments: 48-year-old male patient presents to the emergency department today for evaluation of increased anxiety and panic attack. Patient states he has had panic attacks multiple times in the past and can feel one coming on. Patient states that usually Ativan does help his symptoms. He is also reporting right ear pain and chronic neck pain. Denies any fevers or chills. States he is being treated for sinus infection currently with azithromycin. Patient denies any suicidal or homicidal ideation. Denies any street drugs or alcohol use. Patient does have an extensive psychiatric history and was recently admitted to [facility]. Patient denies any recent rash, fever, chills, shortness breath, chest pain, abdominal pain, nausea, vomiting, diarrhea, constipation, back pain, numbness, tingling, dizziness, weakness, hematuria, dysuria, urinary urgency, urinary frequency, headache, visual changes, or any other complaints. - Related Data Home Medications: Home Medications Medication Instructions Recorded Confirmed Venlafaxine HCl [Effexor XR] 225 mg PO DAILY 08/28/17 02/27/18 metFORMIN HCL 1,000 mg PO BID 08/28/17 02/27/18 OXcarbazepine [Trileptal] 300 mg PO BID 01/25/18 02/27/18 QUEtiapine [SEROquel] 100 mg PO HS 01/25/18 02/27/18 traZODone HCL [Desyrel] 100 mg PO HS 01/25/18 02/27/18 Atorvastatin [Lipitor] 80 mg PO DAILY 02/15/18 02/27/18 Allergies/Adverse Reactions: Allergies Allergy/AdvReac Type Severity Reaction Status Date / Time nickel Allergy Rash/Hives Verified 02/27/18 09:06 Review of Systems ROS Statement: Those systems with pertinent positive or pertinent negative responses have been documented in the HPI. ROS Other: All systems not noted in ROS Statement are negative. Past Medical History Past Medical History: Diabetes Mellitus, Hyperlipidemia Additional Past Medical History / Comment(s): back pain History of Any Multi-Drug Resistant Organisms: None Reported Past Surgical History: Appendectomy, Back Surgery, Hernia Repair Additional Past Surgical History / Comment(s): Cervical fusion with plate, L inguinal hernia repair. Past Anesthesia/Blood Transfusion Reactions: No Reported Reaction Past Psychological History: Depression, Panic Disorder Smoking Status: Current every day smoker Past Alcohol Use History: Occasional Past Drug Use History: None Reported - Past Family History Father Family Medical History: Cancer Additional Family Medical History / Comment(s): Bladder cancer Mother Additional Family Medical History / Comment(s): Mother has anxiety and depression. General Exam Limitations: no limitations General appearance: alert, in no apparent distress, other (So well-developed, well-nourished adult male patient in no acute distress. Vital signs upon presentation are temperature 98.2F, pulse 108, respirations 20, blood pressure 127/62, pulse ox 97% on room air.) Eye exam: Present: normal appearance, PERRL, EOMI. Absent: scleral icterus, conjunctival injection, periorbital swelling ENT exam: Present: normal exam, normal oropharynx, mucous membranes moist, TM's normal bilaterally (Bilateral tympanic membranes appear normal) Respiratory exam: Present: normal lung sounds bilaterally. Absent: respiratory distress, wheezes, rales, rhonchi, stridor Cardiovascular Exam: Present: regular rate, normal rhythm, normal heart sounds. Absent: systolic murmur, diastolic murmur, rubs, gallop, clicks GI/Abdominal exam: Present: soft, normal bowel sounds. Absent: distended, tenderness, guarding, rebound, rigid Neurological exam: Present: alert, oriented X3, CN II-XII intact, other ( Strength in all 4 extremities is 5/5.) Psychiatric exam: Present: normal affect, normal mood Skin exam: Present: warm, dry, intact, normal color. Absent: rash Course Vital Signs 02/27/18 08:56 Temperature 98.2 F Pulse Rate 108 H Respiratory 20 Rate Blood Pressure 127/62 O2 Sat by Pulse 97 Oximetry Medical Decision Making - Medical Decision Making 48-year-old male patient presents to the emergency department today for evaluation of impending panic attack. Patient states he's had symptoms multiple times in the past and usually they are resolved with Ativan. States he is also having some right ear pain and sinus congestion however he is taking azithromycin currently for sinus infection. Visible examination is unremarkable. Tympanic membranes are within normal limits. Patient is neurologically intact with no focal deficits. We will treat with 2 mg of Ativan by mouth. We'll give Tylenol for pain. He is instructed to follow-up with his psychiatrist for further evaluation and discussion of prevention of anxiety attacks. Instructed to follow-up with his primary care physician for recheck in 1-2 days Return parameters were discussed in detail. He verbalizes understanding and agrees with this plan. Disposition Clinical Impression: Panic attack, Right ear pain Disposition: HOME SELF-CARE Condition: Good Instructions: Earache (ED), Panic Attack (ED) Additional Instructions: Follow-up with ear, nose, and throat specialist for further evaluation of right ear pain. Discuss Ativan prescription with your primary care physician. Return immediately for any new, worsening, or concerning symptoms. Is patient prescribed a controlled substance at d/c from ED?: No Referrals: Ghassan Salinas MD [Primary Care Provider] - 1-2 days Time of Disposition: 09:48
[2018-02-27] MEDS ORDERED: PANTOPRAZOLE 40 MG/10 ML VIAL IVP STA (09:54)
[2018-02-27] MEDS ORDERED: HYDROmorphone 2 MG/ML 1 ML SYRINGE IVP STA (09:54)
[2018-02-27 10:02] VITALS: BP 142/93; PULSE 96; RESP 18; TEMP 98.6
== END 2018-02-27 10:01 | disposition home or self-care (01) ==
LOC: EC 08:50
DX: F41.0 Panic disorder [episodic paroxysmal anxiety] (principal); H92.01 Otalgia, right ear; J34.89 Other specified disorders of nose and nasal sinuses; E11.9 Type 2 diabetes mellitus without complications; E78.5 Hyperlipidemia, unspecified; F17.200 Nicotine dependence, unspecified, uncomplicated; Z79.84 Long term (current) use of oral hypoglycemic drugs; Z79.899 Other long term (current) drug therapy; Z88.8 Allergy status to other drugs, medicaments and biological substances
CPT/HCPCS: 99283

== ENCOUNTER 2018-03-23 11:54 | Emergency (ER) | payer OTHER ==
[2018-03-23 12:01] LABS: Glucose,Whole Blood 174 mg/dL (75-99)
[2018-03-23 12:02] VITALS: BP 130/89; PULSE 90; TEMP 97.6
[2018-03-23 12:42] VITALS: RESP 16
[2018-03-23] MEDS ORDERED: SODIUM CHLORIDE 0.9% 1,000 ML IV STA (13:05)
--- NOTE | 2018-03-23 13:12 | ED ---
General Adult HPI - General Chief complaint: Recheck/Abnormal Lab/Rx Stated complaint: not feeling well Time Seen by Provider: 03/23/18 12:45 Source: patient, RN notes reviewed, old records reviewed Mode of arrival: ambulatory Limitations: no limitations - History of Present Illness Initial comments: 48-year-old male patient with past medical history of type 2 diabetes presents to ER with approximately 2 days of fatigue. Patient states that he feels more tired than usual, denies any other complaints. Patient states that he has checked his sugars at home and they were within normal limits for him. Patient denies any other complaints. Patient denies chest pain, abdominal pain, nausea vomiting diarrhea, fever chills, dysuria. Patient denies any recent falls or trauma. Systemic: Pt denies myalgia, fever/chills, rash. Pt denies night sweats, weight loss. Neuro: Pt denies headache, visual disturbances, syncope or pre-syncope. HEENT: Pt denies ocular discharge or irritation, otalgia, rhinorrhea, pharyngitis or notable lymphadenopathy. Cardiopulmonary: Pt denies chest pain, SOB, heart palpitations, dyspnea on exertion. Abdominal/GI: Pt denies abdominal pain, n/v/d. : Pt denies dysuria, burning w/ urination, frequency/urgency. Denies new onset urinary or bowel incontinence. MSK: Pt denies myalgia, loss of strength or function in extremities. Neuro: Pt denies new onset weakness, paresthesias. - Related Data Home Medications Medication Instructions Recorded Confirmed Venlafaxine HCl [Effexor XR] 225 mg PO DAILY 08/28/17 03/23/18 metFORMIN HCL 1,000 mg PO BID 08/28/17 03/23/18 OXcarbazepine [Trileptal] 300 mg PO BID 01/25/18 03/23/18 QUEtiapine [SEROquel] 100 mg PO HS 01/25/18 03/23/18 traZODone HCL [Desyrel] 100 mg PO HS 01/25/18 03/23/18 Atorvastatin [Lipitor] 80 mg PO HS 02/15/18 03/23/18 Hydrocodone/Acetaminophen [[place] 1 tab PO Q8H PRN 03/23/18 03/23/18 10-325] Previous Rx's Medication Instructions Recorded Azithromycin [Zithromax Z-pack] 0 mg PO DIRECTED #6 tab 03/23/18 Allergies Allergy/AdvReac Type Severity Reaction Status Date / Time nickel Allergy Rash/Hives Verified 03/23/18 12:36 Review of Systems ROS Statement: Those systems with pertinent positive or pertinent negative responses have been documented in the HPI. ROS Other: All systems not noted in ROS Statement are negative. Past Medical History Past Medical History: Diabetes Mellitus, Hyperlipidemia Additional Past Medical History / Comment(s): back pain History of Any Multi-Drug Resistant Organisms: None Reported Past Surgical History: Appendectomy, Back Surgery, Hernia Repair Additional Past Surgical History / Comment(s): Cervical fusion with plate, L inguinal hernia repair. Past Anesthesia/Blood Transfusion Reactions: No Reported Reaction Past Psychological History: Depression, Panic Disorder Smoking Status: Current every day smoker Past Alcohol Use History: Occasional Past Drug Use History: Marijuana - Past Family History Father Family Medical History: Cancer Additional Family Medical History / Comment(s): Bladder cancer Mother Additional Family Medical History / Comment(s): Mother has anxiety and depression. General Exam - General Exam Comments Initial Comments: Constitutional: NAD, AOX3, Pt has pleasant affect. HEENT: NC/AT, trachea midline, neck supple, no lymphadenopathy. Posterior pharynx non erythematous, without exudates. External ears appear normal, without discharge. Mucous membranes moist. Eyes PERRLA, EOM intact. There is no scleral icterus. No pallor noted. Cardiopulmonary: RRR, no murmurs, rubs or gallops, no JVD noted. Lungs CTAB in anterior and posterior fatima. No peripheral edema. Abdominal exam: Abdomen soft and non-distended. Abdomen non-tender to palpation in all 4 quadrants. Bowel sounds active in LLQ. No hepatosplenomegaly. No ecchymosis Neuro: CN II-XII intact. No nuchal rigidity. No focal deficit, no facial droop. MSK: No posterior calf tenderness bilaterally, homans sign negative bilaterally. Posterior tibialis and radial pulse +2 bilaterally. Sensation intact in upper and lower extremities. Full active ROM in upper and lower extremities, 5/5 stregnth. Limitations: no limitations Course Vital Signs 03/23/18 03/23/18 03/23/18 12:00 12:41 15:04 Temperature 97.6 F Pulse Rate 90 Respiratory 20 16 16 Rate Blood Pressure 130/89 O2 Sat by Pulse 99 Oximetry 03/23/18 15:39 Temperature Pulse Rate Respiratory 16 Rate Blood Pressure O2 Sat by Pulse Oximetry Medical Decision Making - Medical Decision Making 48-year-old male patient with past medical history of type 2 diabetes presents to ER with approximately 2 days of fatigue. Patient states that he feels more tired than usual, denies any other complaints. Patient states that he has checked his sugars at home and they were within normal limits for him. Patient denies any other complaints. Patient denies chest pain, abdominal pain, nausea vomiting diarrhea, fever chills, dysuria. Patient denies any recent falls or trauma. Patient vital signs stable afebrile. Physical exam did not display acute pathology. Laboratory investigations were conducted. CBC displayed leukocytosis of 19.2. CMP was non-impressive. Lipase was elevated to 943. UA nonimmpressive. Acetone negative. Findings were explained patient at length. Chest x-ray revealed COPD with right basilar atelectasis favored over infiltrate. Continue history taking revealed the patient has been drinking excessive alcohol approximately 2 days ago. Recommended admission to patient for pancreatitis and pneumonia. Patient declined admission states that he will sign out AGAINST MEDICAL ADVICE. Explained risks to patient including , patient verbalized understanding. Explained reasons why we recommend admission, pt verbalized understanding. Explained what inpatient treatment of pancreatitis would consist of, pt verbalized understanding. Pt to be prescribed azithromycin for CAP. Pt states he will return to ED if symptoms worsen. Pt states he will f/ u with his PCP in 1-2 days. Case discussed in depth for Dr. Stephenson. - Lab Data Result diagrams: 03/23/18 13:10 03/23/18 13:10 Lab Results 03/23/18 03/23/18 03/23/18 Range/Units 11:59 13:10 13:10 WBC 19.2 H (3.8-10.6) k/uL RBC 5.48 (4.30-5.90) m/uL Hgb 16.0 (13.0-17.5) gm/dL Hct 49.5 (39.0-53.0) % MCV 90.2 (80.0-100.0) fL MCH 29.3 (25.0-35.0) pg MCHC 32.4 (31.0-37.0) g/dL RDW 13.3 (11.5-15.5) % Plt Count 285 (150-450) k/uL Neutrophils % 84 % Lymphocytes % 9 % Monocytes % 4 % Eosinophils % 2 % Basophils % 1 % Neutrophils # 16.1 H (1.3-7.7) k/uL Lymphocytes # 1.8 (1.0-4.8) k/uL Monocytes # 0.8 (0-1.0) k/uL Eosinophils # 0.3 (0-0.7) k/uL Basophils # 0.1 (0-0.2) k/uL Sodium 140 (137-145) mmol/L Potassium 4.7 (3.5-5.1) mmol/L Chloride 103 (98-107) mmol/L Carbon Dioxide 28 (22-30) mmol/L Anion Gap 9 mmol/L BUN 10 (9-20) mg/dL Creatinine 0.74 (0.66-1.25) mg/dL Est GFR (CKD-EPI)AfAm >90 (>60 ml/min/1.73 sqM) Est GFR (CKD-EPI)NonAf >90 (>60 ml/min/1.73 sqM) Glucose 138 H (74-99) mg/dL POC Glucose (mg/dL) 174 H (75-99) mg/dL POC Glu Seismograph Supervisor ID Kb Talavera Calcium 10.0 (8.4-10.2) mg/dL Total Bilirubin 0.4 (0.2-1.3) mg/dL AST 16 L (17-59) U/L ALT 23 (21-72) U/L Alkaline Phosphatase 58 (38-126) U/L Total Protein 7.3 (6.3-8.2) g/dL Albumin 4.5 (3.5-5.0) g/dL Lipase 943 H (23-300) U/L Urine Color Urine Appearance (Clear) Urine pH (5.0-8.0) Ur Specific [place] (1.001-1.035) Urine Protein (Negative) Urine Glucose (UA) (Negative) Urine Ketones (Negative) Urine Blood (Negative) Urine Nitrite (Negative) Urine Bilirubin (Negative) Urine Urobilinogen (<2.0) mg/dL Ur Leukocyte Esterase (Negative) Acetone, Qual Negative (Negative) 03/23/18 Range/Units 15:52 WBC (3.8-10.6) k/uL RBC (4.30-5.90) m/uL Hgb (13.0-17.5) gm/dL Hct (39.0-53.0) % MCV (80.0-100.0) fL MCH (25.0-35.0) pg MCHC (31.0-37.0) g/dL RDW (11.5-15.5) % Plt Count (150-450) k/uL Neutrophils % % Lymphocytes % % Monocytes % % Eosinophils % % Basophils % % Neutrophils # (1.3-7.7) k/uL Lymphocytes # (1.0-4.8) k/uL Monocytes # (0-1.0) k/uL Eosinophils # (0-0.7) k/uL Basophils # (0-0.2) k/uL Sodium (137-145) mmol/L Potassium (3.5-5.1) mmol/L Chloride (98-107) mmol/L Carbon Dioxide (22-30) mmol/L Anion Gap mmol/L BUN (9-20) mg/dL Creatinine (0.66-1.25) mg/dL Est GFR (CKD-EPI)AfAm (>60 ml/min/1.73 sqM) Est GFR (CKD-EPI)NonAf (>60 ml/min/1.73 sqM) Glucose (74-99) mg/dL POC Glucose (mg/dL) (75-99) mg/dL POC Glu Seismograph Supervisor ID Calcium (8.4-10.2) mg/dL Total Bilirubin (0.2-1.3) mg/dL AST (17-59) U/L ALT (21-72) U/L Alkaline Phosphatase (38-126) U/L Total Protein (6.3-8.2) g/dL Albumin (3.5-5.0) g/dL Lipase (23-300) U/L Urine Color Yellow Urine Appearance Clear (Clear) Urine pH 6.0 (5.0-8.0) Ur Specific [place] 1.010 (1.001-1.035) Urine Protein Negative (Negative) Urine Glucose (UA) Negative (Negative) Urine Ketones Negative (Negative) Urine Blood Negative (Negative) Urine Nitrite Negative (Negative) Urine Bilirubin Negative (Negative) Urine Urobilinogen <2.0 (<2.0) mg/dL Ur Leukocyte Esterase Negative (Negative) Acetone, Qual (Negative) Disposition Clinical Impression: Pancreatitis, Community acquired pneumonia Disposition: Left Against Medical Advice Condition: Undetermined Instructions: Pancreatitis (ED), Community Acquired Pneumonia (ED) Prescriptions: Azithromycin [Zithromax Z-pack] 0 mg PO DIRECTED #6 tab Is patient prescribed a controlled substance at d/c from ED?: No Referrals: Ghassan Salinas MD [Primary Care Provider] - 1-2 days
[2018-03-23 13:37] LABS: Basophils # (A) 0.1 k/uL (0-0.2); Basophils % (A) 1 %; Eosinophils # (A) 0.3 k/uL (0-0.7); Eosinophils % (A) 2 %; HCT 49.5 % (39.0-53.0); Lymphocytes # (A) 1.8 k/uL (1.0-4.8); Lymphocytes % (A) 9 %; MCH 29.3 pg (25.0-35.0); MCHC 32.4 g/dL (31.0-37.0); MCV 90.2 fL (80.0-100.0); Mean Platelet Volume 6.3; Monocytes # (A) 0.8 k/uL (0-1.0); Monocytes % (A) 4 %; Neutrophils # (A) 16.1 k/uL (1.3-7.7); Neutrophils % (A) 84 %; Platelet Count 285 k/uL (150-450); RBC 5.48 m/uL (4.30-5.90); RDW 13.3 % (11.5-15.5); WBC 19.2 k/uL (3.8-10.6)
[2018-03-23 13:48] LABS: ALT 23 U/L (21-72); AST 16 U/L (17-59); Albumin 4.5 g/dL (3.5-5.0); Alkaline Phosphatase 58 U/L (38-126); Anion Gap 9 mmol/L; Blood Urea Nitrogen 10 mg/dL (9-20); Carbon Dioxide 28 mmol/L (22-30); Chloride 103 mmol/L (98-107); Glucose 138 mg/dL (74-99); Potassium 4.7 mmol/L (3.5-5.1); Sodium 140 mmol/L (137-145); Total Bilirubin 0.4 mg/dL (0.2-1.3); Total Protein 7.3 g/dL (6.3-8.2)
--- NOTE | 2018-03-23 14:31 | XR ---
EXAMINATION TYPE: XR chest 2V DATE OF EXAM: 03/23/2018 COMPARISON: 08/28/2017 TECHNIQUE: PA and lateral views submitted. HISTORY: Pain FINDINGS: Subsegmental consolidation at the right lung base. No overt failure. Postsurgical change overlying th e cervical spine. Hyperinflation is COPD. IMPRESSION: 1. COPD with right basilar atelectasis favored over infiltrate correlate clinically for confirmation. .
[2018-03-23] MEDS ORDERED: SODIUM CHLORIDE 0.9% 500 ML 500 ML IV STA (15:19)
[2018-03-23 15:25] LABS: Lipase 943 U/L (23-300)
[2018-03-23 16:09] LABS: Appearance,Urine Clear (Clear); Bilirubin,Urine Negative (Negative); Blood,Urine Negative (Negative); Color,Urine Yellow; Glucose,Urine (UA) Negative (Negative); Ketones,Urine Negative (Negative); Leukocyte Esterase,Urine Negative (Negative); Nitrite,Urine Negative (Negative); Protein,Urine Negative (Negative); Urobilinogen,Urine <2.0 mg/dL (<2.0)
== END 2018-03-23 16:20 | disposition left against medical advice (07) ==
LOC: EC 11:54
DX: J18.9 Pneumonia, unspecified organism (principal); K85.90 Acute pancreatitis without necrosis or infection, unspecified; J44.9 Chronic obstructive pulmonary disease, unspecified; J98.11 Atelectasis; D72.829 Elevated white blood cell count, unspecified; R74.8 Abnormal levels of other serum enzymes; E11.9 Type 2 diabetes mellitus without complications; E78.5 Hyperlipidemia, unspecified; F32.9 Major depressive disorder, single episode, unspecified; F41.0 Panic disorder [episodic paroxysmal anxiety]; F17.200 Nicotine dependence, unspecified, uncomplicated; Z79.84 Long term (current) use of oral hypoglycemic drugs; Z53.29 Procedure and treatment not carried out because of patient's decision for other reasons; Z79.899 Other long term (current) drug therapy; Z88.8 Allergy status to other drugs, medicaments and biological substances
CPT/HCPCS: 36415; 71046; 80053; 81003; 82009; 83625; 83690; 85025; 96360; 96361; 99284

== ENCOUNTER 2020-03-23 14:24 | Emergency (ER) | payer OTHER ==
[2020-03-23 14:33] VITALS: RESP 16; TEMP 98.1
[2020-03-23] MEDS ORDERED: PENICILLIN VK 500MG STARTER 4 TAB BTL PO STA (15:24)
--- NOTE | 2020-03-23 15:27 | ED ---
General Adult HPI - General Source: patient, RN notes reviewed Mode of arrival: ambulatory Limitations: no limitations <Alvarez Morgan - Last Filed: 03/23/20 15:29> <Leticia Hudson - Last Filed: 03/24/20 22:45> - General Chief complaint: Skin/Abscess/Foreign Body Stated complaint: LFT side face infection Time Seen by Provider: 03/23/20 14:52 - History of Present Illness Initial comments: 50-year-old male with a past medical of NIDDM, hyperlipidemia, back pain presents to the emergency room for treatment of left-sided facial swelling. Patient states he started to have left-sided frontal dental pain 2 days ago. States that yesterday he started to have since facial swelling. Today it was worse. He went to urgent care and they referred him to the emergency room. Patient denies any fevers or chills. Denies any swelling under the tongue. Denies any difficulty swallowing or drooling. Denies any neck tightness or stiffness.Patient has no other complaints at this time including shortness of breath, chest pain, abdominal pain, nausea or vomiting, headache, or visual changes. (Alvarez Morgan) - Related Data Home Medications Medication Instructions Recorded Confirmed Venlafaxine HCl [Effexor XR] 225 mg PO DAILY 08/28/17 03/23/20 metFORMIN HCL 1,000 mg PO BID 08/28/17 03/23/20 Atorvastatin [Lipitor] 80 mg PO HS 02/15/18 03/23/20 Hydrocodone/Acetaminophen [[place] 1 tab PO Q8H PRN 03/23/18 03/23/20 10-325] ARIPiprazole [Abilify] 20 mg PO DAILY 03/23/20 03/23/20 sitaGLIPtin PHOSPHATE [Januvia] 100 mg PO DAILY 03/23/20 03/23/20 Previous Rx's Medication Instructions Recorded Penicillin V Potassium [Pen Vee K] 500 mg PO Q6H 10 Days #40 tablet 03/23/20 Allergies Allergy/AdvReac Type Severity Reaction Status Date / Time nickel Allergy Rash/Hives Verified 03/23/20 15:33 Review of Systems ROS Other: All systems not noted in ROS Statement are negative. <Alvarez Morgan - Last Filed: 03/23/20 15:29> ROS Other: All systems not noted in ROS Statement are negative. <Leticia Hudson Naomie - Last Filed: 03/24/20 22:45> ROS Statement: Those systems with pertinent positive or pertinent negative responses have been documented in the HPI. Past Medical History Past Medical History: Diabetes Mellitus, Hyperlipidemia Additional Past Medical History / Comment(s): back pain History of Any Multi-Drug Resistant Organisms: None Reported Past Surgical History: Appendectomy, Back Surgery, Hernia Repair Additional Past Surgical History / Comment(s): Cervical fusion with plate, L inguinal hernia repair. Past Anesthesia/Blood Transfusion Reactions: No Reported Reaction Past Psychological History: Depression, Panic Disorder Smoking Status: Current every day smoker Past Alcohol Use History: Occasional Past Drug Use History: Marijuana - Past Family History Father Family Medical History: Cancer Additional Family Medical History / Comment(s): Bladder cancer Mother Additional Family Medical History / Comment(s): Mother has anxiety and depression. <Alvarez Morgan P - Last Filed: 03/23/20 15:29> General Exam Limitations: no limitations General appearance: alert Head exam: Present: atraumatic Eye exam: Present: normal appearance, PERRL, EOMI, periorbital swelling (minimal inferior periorbital edema that is non-tender, non-indurated). Absent: scleral icterus, periorbital tenderness ENT exam: Present: mucous membranes moist, TM's normal bilaterally. Absent: normal oropharynx (Mild left-sided facial edema near maxillary area. Patient has poor dentition noted. He does not have any dental abscesses upon direct visualization of the gumline and palpation of the gum line.), other (No sublingual edema, no trismus. No drooling, tripoding, or respiratory distress.) Neck exam: Present: normal inspection, full ROM. Absent: tenderness, other (No tenderness or swelling extending into the neck.) Respiratory exam: Present: normal lung sounds bilaterally. Absent: respiratory distress Cardiovascular Exam: Present: regular rate, normal rhythm, normal heart sounds Neurological exam: Present: alert <Alvarez Morgan P - Last Filed: 03/23/20 15:29> Course Vital Signs 03/23/20 03/23/20 14:29 15:36 Temperature 98.1 F Pulse Rate 98 86 Respiratory 16 16 Rate Blood Pressure 126/88 136/89 O2 Sat by Pulse 99 99 Oximetry Medical Decision Making <Alvarez Morgan - Last Filed: 03/23/20 15:29> <Leticia Hudson - Last Filed: 03/24/20 22:45> - Medical Decision Making Patient was also evaluated by Dr. Hudson. Patient has not started on any antibiotics as of yet. He does not have any trismus, sublingual edema, swelling in the neck, difficulty swallowing, or drooling. No fevers. No neck stiffness. There is mild facial edema near the axillary area. At this time recommend patient start on oral antibiotics and give this 24 hours to start work. If symptoms are worsening significantly and that time he is aware he needs to retur n to the emergency room. If symptoms are not improving after 24 hours he will also return. He will follow up with his dentist as soon as possible by calling for an appointment today when he gets home. He is agreeable to this. He is aware of signs and symptoms to monitor for. (Alvarez Morgan) I was available for consultation in the emergency department. The history and physical exam were done by the midlevel provider. I was consulted for this patients care. I reviewed the case with the midlevel provider and based on their presentation of the patient, I agree with the assessment, medical decision making and plan of care as documented. Chart was dictated using Si[employer] dictation software. Attempts were made to correct any dictation errors however some typographical errors may persist. Patient was seen during a national state of emergency due to the Covid-19 pandemic. (Leticia Hudson) Disposition Is patient prescribed a controlled substance at d/c from ED?: No Time of Disposition: 15:25 <Alvarez Morgan - Last Filed: 03/23/20 15:29> <Leticia Hudson - Last Filed: 03/24/20 22:45> Clinical Impression: Pain, dental Disposition: HOME SELF-CARE Condition: Good Instructions (If sedation given, give patient instructions): Dental Abscess (ED) Additional Instructions: Please take Motrin as well as [place] for pain. Take antibiotic as directed. Please follow up as soon as possible with a dentist. Make sure he call today for an appointment. Return to the emergency room for any worsening symptoms such as fevers, worsening swelling, or swelling in your neck. [facility] [address], [facility] [address] (existing clients only) New clients: [phone] 1st consult: $50 (includes XRs) Usually 30% less than private dentist for visits after. [employer] Have to pay $50 for Xrays and rest is covered [phone] Prescriptions: Penicillin V Potassium [Pen Vee K] 500 mg PO Q6H 10 Days #40 tablet Referrals: Ghassan Salinas MD [Primary Care Provider] - 1-2 days
[2020-03-23 15:39] VITALS: BP 136/89; PULSE 86
== END 2020-03-23 15:39 | disposition home or self-care (01) ==
LOC: EC 14:24
DX: K08.89 Other specified disorders of teeth and supporting structures (principal); E11.9 Type 2 diabetes mellitus without complications; E78.5 Hyperlipidemia, unspecified; F41.0 Panic disorder [episodic paroxysmal anxiety]; F32.9 Major depressive disorder, single episode, unspecified; F17.200 Nicotine dependence, unspecified, uncomplicated; Z79.84 Long term (current) use of oral hypoglycemic drugs; Z79.899 Other long term (current) drug therapy; Z91.048 Other nonmedicinal substance allergy status; Z98.1 Arthrodesis status
CPT/HCPCS: 99283

== ENCOUNTER 2020-05-08 07:55 | Day surgery (SDC) | payer OTHER ==
[2020-05-04 15:03] VITALS: BMI 25.2
[~2020-05-08 07:55] MED LIST: LACTATED RINGERS 1,000 ML IV SCH
[2020-05-08] MEDS ORDERED: LIDOCAINE 1% (10MG/ML) FOR IV START INTRADERMA ONE (08:20)
[2020-05-08 08:32] VITALS: RESP 20; TEMP 97.1
[2020-05-08 08:39] LABS: Glucose,Whole Blood 132 mg/dL (75-99)
[2020-05-08] MEDS ORDERED: PROPOFOL 10 MG/ML 20 ML VIAL IV ONE (08:53)
--- NOTE | 2020-05-08 08:58 | P.GSHP ---
History of Present Illness H&P Date: 05/08/20 Chief Complaint: Screening colonoscopy This a 50-year-old male presents today for screening colonoscopy. Patient denies any significant GI complaints. Past Medical History Past Medical History: Diabetes Mellitus, Hyperlipidemia Additional Past Medical History / Comment(s): back pain History of Any Multi-Drug Resistant Organisms: None Reported Past Surgical History: Appendectomy, Back Surgery, Hernia Repair Additional Past Surgical History / Comment(s): Cervical fusion with plate, L inguinal hernia repair. Past Anesthesia/Blood Transfusion Reactions: No Reported Reaction Past Psychological History: Depression, Panic Disorder Additional Psychological History / Comment(s): OCD. Past [facility] admissions for suicidal ideations. Pt resides in an apartment with a room mate. He works for [employer]. His car is broken down so he walks everywhere now. He is independent. He states his mental health is stable at this time. Smoking Status: Current every day smoker Past Alcohol Use History: None Reported, Occasional Additional Past Alcohol Use History / Comment(s): Pt started smoking in 1972 and was up to 3 ppd. The past 4 months he has cut down to 1 ppd. States he does not drink alcohol but uses marijuana. Past Drug Use History: Marijuana Additional Drug Use History / Comment(s): Pt smokes 2 grams of marijuana a day. - Past Family History Father Family Medical History: Cancer Additional Family Medical History / Comment(s): Bladder cancer Mother Additional Family Medical History / Comment(s): Mother has anxiety and depression. Medications and Allergies Home Medications Medication Instructions Recorded Confirmed Type Venlafaxine HCl [Effexor XR] 225 mg PO DAILY 08/28/17 05/04/20 History metFORMIN HCL 1,000 mg PO BID 08/28/17 05/04/20 History Atorvastatin [Lipitor] 80 mg PO HS 02/15/18 05/04/20 History Hydrocodone/Acetaminophen [[place] 1 tab PO Q8H PRN 03/23/18 05/04/20 History 10-325] ARIPiprazole [Abilify] 20 mg PO DAILY 03/23/20 05/04/20 History sitaGLIPtin PHOSPHATE [Januvia] 100 mg PO DAILY 03/23/20 05/04/20 History Allergies Allergy/AdvReac Type Severity Reaction Status Date / Time nickel Allergy Rash/Hives Verified 05/04/20 14:51 Surgical - Exam Vital Signs Temp Pulse Resp BP Pulse Ox 97.1 F L 67 20 128/71 99 05/08/20 08:20 05/08/20 08:20 05/08/20 08:20 05/08/20 08:20 05/08/20 08:20 - General well developed, well nourished, no distress - Eyes PERRL - ENT normal pinna - Neck no masses - Respiratory normal expansion - Cardiovascular Rhythm: regular - Abdomen Abdomen: soft, non tender Results - Labs Abnormal Lab Results - Last 24 Hours (Table) 05/08/20 Range/Units 08:24 POC Glucose (mg/dL) 132 H (75-99) mg/dL Assessment and Plan Assessment: We'll perform screening colonoscopy
--- NOTE | 2020-05-08 09:11 | P.OP ---
Date of Procedure: 05/08/20 Preoperative Diagnosis: Screening colonoscopy Postoperative Diagnosis: Normal colon Procedure(s) Performed: Colonoscopy Anesthesia: MAC Surgeon: Salvador Freitas Pathology: none sent Condition: stable Disposition: PACU Description of Procedure: With normal colonoscopy
[2020-05-08 09:13] VITALS: BP 102/68; PULSE 69
== END 2020-05-08 10:00 | disposition home or self-care (01) ==
LOC: ORWHC2ENDO 07:55
PROVIDERS: ATTEND Surgery
DX: Z12.11 Encounter for screening for malignant neoplasm of colon (principal); E11.9 Type 2 diabetes mellitus without complications; E78.5 Hyperlipidemia, unspecified; M54.9 Dorsalgia, unspecified; F32.9 Major depressive disorder, single episode, unspecified; F41.0 Panic disorder [episodic paroxysmal anxiety]; F17.210 Nicotine dependence, cigarettes, uncomplicated; Z90.89 Acquired absence of other organs; Z98.1 Arthrodesis status; Z98.890 Other specified postprocedural states; Z80.52 Family history of malignant neoplasm of bladder; Z81.8 Family history of other mental and behavioral disorders; Z79.84 Long term (current) use of oral hypoglycemic drugs; Z79.899 Other long term (current) drug therapy; Z91.048 Other nonmedicinal substance allergy status
CPT/HCPCS: J2704; G0121

== ENCOUNTER → 2021-11-11 | Outpatient (CLI) | payer OTHER ==
--- NOTE | 2021-11-11 16:41 | XR ---
Right shoulder HISTORY: Right shoulder strain 3 months prior 3 views of the right shoulder No comparisons Bone mineralization, joint spaces and alignment are maintained. Right lung apex as visualized is norm al. There is overlying artifact on the external rotated view. Right lung apex as visualized is normal . Distal acromion is downturned. Postop change noted to the cervical spine. IMPRESSION: Correlate for impingement. Shoulder MRI may be of benefit.
[2021-11-12 00:45] LABS: African American GFR (CKD) 116.1 (60.0-200.0); Anion Gap 10.5 mmol/L (10.00-18.00); BUN/Creat Ratio 12.92 Ratio (12.00-20.00); Blood Urea Nitrogen 10.8 mg/dL (9.0-27.0); Calcium 9.2 mg/dL (8.7-10.3); Carbon Dioxide 25.2 mmol/L (20.0-27.5); Non-African American GFR(CKD) 100.2 (60.0-200.0); Potassium 4.2 mmol/L (3.5-5.5)
== END | disposition home or self-care (01) ==
LOC: RADXRMAIN 14:00
PROVIDERS: ATTEND Family Medicine
DX: S46.911A Strain of unspecified muscle, fascia and tendon at shoulder and upper arm level, right arm, initial encounter (principal); E11.9 Type 2 diabetes mellitus without complications; E78.2 Mixed hyperlipidemia
CPT/HCPCS: 80048

== ENCOUNTER → 2024-02-20 | Outpatient (CLI) | payer OTHER ==
--- NOTE | 2024-02-21 08:30 | CTL ---
EXAMINATION TYPE: CT Low Dose Lung DATE OF EXAM: 02/20/2024 3:19 PM COMPARISON: 12/12/2014 CLINICAL INDICATION: Male, 53 years old with history of Z12.2 LUNG CA SCR F17.210 CURRENT SMOKER; Cur rent every day smoker, 1 ppd x 40 years, history of tobacco use. TECHNIQUE: Multiple axial non-contrast scans were obtained from approximately the lung apices through the upper abdomen. Coronal and sagittal reformatted images were obtained. Low dose technique was uti lized. MIP were created on a separate workstation and submitted for review. CT DLP: 71.0 mGycm, Automated exposure control for dose reduction was used. CT Contrast: Contrast used: None Oral contrast used: None FINDINGS: Lack of intravenous contrast and low dose technique limits the evaluation of the vascular and soft ti ssue structures. LUNGS: No evidence of pulmonary fibrosis. No evidence of focal consolidation, pneumothorax or pleural effusion. Centrilobular emphysema changes. Nodules: RUL: None. RML: None. RLL: None. MADY: None. LLL: None. AIRWAY: Patent and unremarkable. HEART: Size within normal limits. MEDIASTINUM: No gross evidence of adenopathy. VASCULATURE: No aortic aneurysm. MUSCULOSKELETAL: No acute osseous abnormalities, fixation hardware to the cervical spine appears inta ct.22 SOFT TISSUES/LYMPH NODES: Unremarkable. LOWER NECK: No significant findings. UPPER ABDOMEN: No significant findings. IMPRESSION: No clinically significant pulmonary nodules. CT LUNG RAD AND CT CHEST RECOMMENDATION: Lung-Rad 1 Negative: Continue annual screening with LDCT in 12 months. S Modifier (other clinically significant findings): None Recommend smoking cessation (if current smoker), or continuation of smoking cessation (if prior smoke r). Annual screening for lung cancer with low-dose computed tomography is recommended in adults ages 55 to 77 years who have a 30 pack-year smoking history and currently smoke or have quit within the pa st 15 years. Screening should be discontinued once a person has not smoked for 15 years or develops a health problem that substantially limits life expectancy or the ability or willingness to have curat yung lung surgery. Lung rads 2021 [email or web address] [facility], , 02/21/2024 8:27 AM
== END | disposition home or self-care (01) ==
LOC: RADCTMAIN 14:47
PROVIDERS: ATTEND Family Medicine
DX: Z00.00 Encounter for general adult medical examination without abnormal findings (principal); Z12.2 Encounter for screening for malignant neoplasm of respiratory organs; F17.210 Nicotine dependence, cigarettes, uncomplicated
CPT/HCPCS: 71271